=== PATIENT | female | born 1995 | race Caucasian/White ===

== ENCOUNTER 2019-09-09 23:39 | Emergency (ER) | payer OTHER ==
[~2019-09-09] VITALS: Ht 162.6 cm; Wt 77.3 kg
[2019-09-10] MEDS ORDERED: SPRAVATO NS (00:08)
[2019-09-10 01:43] LABS: BASO % 0.5 % (0.0-2.0); EOS # 0.1 (0.0-0.7); EOS % 0.7 % (0-4.0); GRAN # 6.3 (1.4-6.5); GRAN % 75.1 % (42.2-75.2); HEMATOCRIT 39.1 % (37.0-47.0); HEMOGLOBIN 13.1 g/dl (12.5-16.0); LYMPH # 1.5 (1.2-3.4); LYMPH % 18.5 % (20.0-51.0); MEAN CELL VOLUME 90 fl (80.0-100.0); MEAN CORPUSCULAR HEMOGLOBIN 30 pg (27.0-31.0); MEAN CORPUSCULAR HGB CONC 34 g/dl (33.0-37.0); MEAN PLATELET VOLUME 10.5 fl (7.4-10.4); MONO # 0.4 (0.1-0.6); PLATELET COUNT 171 K/mm3 (130-400); RED BLOOD COUNT 4.36 M/mm3 (4.10-5.30); REDCELL DISTRIBUTION WIDTH-CV 11.2 % (11.5-14.5)
[2019-09-10 02:02] LABS: ALBUMIN 3.9 gm/dL (3.5-5.0); BILIRUBIN,TOTAL 0.8 mg/dL (0.0-1.0); C-REACTIVE PROTEIN 0.6 mg/dL (0.0-0.9); CALCIUM 8.9 mg/dL (8.4-10.2); CREATININE, serum 0.68 (0.52-1.25); POTASSIUM 4.1 mmol/L (3.4-5.0); TOTAL PROTEIN 7.4 gm/dL (6.4-8.2)
[2019-09-10 02:24] LABS: COLLECTION METHOD CLEAN CATCH
[2019-09-10 02:30] LABS: MUCOUS Present /lpf; PH 6 (5-8); SQUAMOUS EPITHELIAL None Seen /hpf; URINE APPEARANCE Clear; URINE BACTERIA Rare /hpf; URINE BILIRUBIN Negative (NEGATIVE); URINE BLOOD 1+ (NEGATIVE); URINE COLOR Yellow; URINE GLUCOSE Negative (NEGATIVE); URINE KETONE 1+ (NEGATIVE); URINE LEUKOCYTE ESTERASE Negative (NEGATIVE); URINE NITRATE Negative (NEGATIVE); URINE PROTEIN(semi-quant) Negative (NEGATIVE); URINE RBC 0-2 /hpf; URINE UROBILINOGEN Negative (NEGATIVE)
[2019-09-10] MEDS ORDERED: PHENERGAN 25 TA25 MG PO ×2 (02:59→03:03)
[2019-09-10 05:00] VITALS: BP 114/70; PULSE 75; TEMP 98
== END 2019-09-10 04:30 | disposition home or self-care (01) ==
LOC: COL.ER 23:39
PROVIDERS: Nurse Practitioner
DX: K52.9 Noninfective gastroenteritis and colitis, unspecified (principal)
CPT/HCPCS: J2405; J2550; J7030

== ENCOUNTER 2019-09-11 13:32 | Emergency (ER) | payer OTHER ==
[~2019-09-11] VITALS: Ht 162.6 cm; Wt 77.3 kg
[~2019-09-11 13:32] MED LIST: PHENERGAN 25 TA25 MG PO; SPRAVATO NS
[2019-09-11 13:43] VITALS: TEMP 98
[2019-09-11 14:42] LABS: COLLECTION METHOD CLEAN CATCH
[2019-09-11 14:52] LABS: BASO # 0.1 (0.0-0.2); BASO % 0.8 % (0.0-2.0); EOS # 0.1 (0.0-0.7); EOS % 1.5 % (0-4.0); GRAN # 4.1 (1.4-6.5); GRAN % 68.2 % (42.2-75.2); HEMATOCRIT 39.5 % (37.0-47.0); HEMOGLOBIN 13.2 g/dl (12.5-16.0); LYMPH # 1.4 (1.2-3.4); LYMPH % 23.8 % (20.0-51.0); MEAN CELL VOLUME 89 fl (80.0-100.0); MEAN CORPUSCULAR HEMOGLOBIN 30 pg (27.0-31.0); MEAN CORPUSCULAR HGB CONC 33 g/dl (33.0-37.0); MEAN PLATELET VOLUME 10.4 fl (7.4-10.4); MONO # 0.3 (0.1-0.6); MONO % 5.5 % (1.7-9.3); PLATELET COUNT 235 K/mm3 (130-400); RED BLOOD COUNT 4.45 M/mm3 (4.10-5.30); REDCELL DISTRIBUTION WIDTH-CV 11.3 % (11.5-14.5)
[2019-09-11 14:54] LABS: MUCOUS Present /lpf; PH 7 (5-8); SQUAMOUS EPITHELIAL 0-2 /hpf; URINE APPEARANCE Clear; URINE BACTERIA None Seen /hpf; URINE BILIRUBIN Negative (NEGATIVE); URINE BLOOD 2+ (NEGATIVE); URINE COLOR Straw; URINE GLUCOSE Negative (NEGATIVE); URINE KETONE Negative (NEGATIVE); URINE LEUKOCYTE ESTERASE Negative (NEGATIVE); URINE NITRATE Negative (NEGATIVE); URINE PROTEIN(semi-quant) Negative (NEGATIVE); URINE RBC 0-2 /hpf; URINE UROBILINOGEN Negative (NEGATIVE)
[2019-09-11 14:58] LABS: ALANINE AMINOTRANSFERASE 13 U/L (4-34); ALBUMIN 4.2 gm/dL (3.5-5.0); ALKALINE PHOSPHATASE 49 U/L (50-136); ANION GAP 8 mmol/L (7-16); AST,SGOT 19 U/L (15-37); BILIRUBIN,TOTAL 0.7 mg/dL (0.0-1.0); BLOOD UREA NITROGEN 8 mg/dL (7-17); CALCIUM 9.2 mg/dL (8.4-10.2); CARBON DIOXIDE 26 mmol/L (22-30); CHLORIDE 103 mmol/L (98-107); CREATININE, serum 0.75 (0.52-1.25); GLUCOSE 92 mg/dL (74-106); LIPASE 86 U/L (23-300); POTASSIUM 4.1 mmol/L (3.4-5.0); SODIUM 136 mmol/L (137-145); TOTAL PROTEIN 7.9 gm/dL (6.4-8.2)
[2019-09-11 15:00] LABS: C-REACTIVE PROTEIN < 0.5 mg/dL (0.0-0.9)
[2019-09-11 15:42] VITALS: BP 115/80; PULSE 81
== END 2019-09-11 16:05 | disposition home or self-care (01) ==
LOC: COL.ER 13:32
PROVIDERS: Physician Assistant
DX: R10.12 Left upper quadrant pain (principal); R11.0 Nausea
CPT/HCPCS: J1885